=== PATIENT | female | born 1985 | race Hispanic/Latino ===

== ENCOUNTER 2017-07-12 08:18 | Inpatient (IN) | payer MEDICAID ==
[2017-07-12] MEDS ORDERED: BRETHINE IVP PRN (11:23)
[2017-07-12] MEDS ORDERED: BRETHINE SUB-Q PRN (11:23)
[2017-07-12] MEDS ORDERED: MINERAL OIL PO PRN (11:23)
[2017-07-12] MEDS ORDERED: SUBLIMAZE IV PRN (11:23)
[2017-07-12] MEDS ORDERED: ePHEDrine SULFATE IV PRN (11:23)
[2017-07-12] MEDS: LACTATED RINGERS 1,000 ML IV SCH (11:54)
[2017-07-12] MEDS ORDERED: PITOCin/NS 20 UNIT/1000ML DRIP 20 UNITS/1,000 ML BAG IV SCH (12:00)
[2017-07-12] MEDS: PITOCin/NS 30 UNIT/500ML 30 UNITS/500 ML BAG IV SCH ×3 (12:00→14:01)
[2017-07-12] MEDS ORDERED: XYLOCAINE 2% INFILTRATI ONE (12:00)
[2017-07-12] MEDS ORDERED: PITOCin/NS 30 UNIT/500ML 30 UNITS/500 ML BAG IV SCH (12:00)
[2017-07-12 13:47] LABS: Hematocrit 32.5 % (30.3-42.9); Hemoglobin 10.7 gm/dl (10.1-14.3); Mean Corpuscular HGB Conc 33 % (30-34); Mean Corpuscular Hemoglobin 31 pg (28-32); Mean Corpuscular Volume 94 fl (79-97); Platelet Count 280 K/mm3 (140-440); Red Blood Count 3.46 M/mm3 (3.65-5.03); Red Cell Distribution Width 13.6 % (13.2-15.2); White Blood Count 12.4 K/mm3 (4.5-11.0)
[2017-07-12] MEDS: STADOL IV PRN ×3 (14:09→22:34)
[2017-07-13] MEDS: STADOL IV PRN ×3 (01:00→07:09)
[2017-07-13] MEDS: LACTATED RINGERS 1,000 ML IV SCH ×3 (02:53→08:47)
[2017-07-13] MEDS: PITOCin/NS 30 UNIT/500ML 30 UNITS/500 ML BAG IV SCH ×3 (05:30→06:51)
--- NOTE | 2017-07-13 06:29 | History and Physical Report ---
History of Present Illness Date of examination: 07/13/17 Date of admission: 07/12/17 08:18 Chief complaint: I'm here for induction History of present illness: Patient is a 32 year old who presents at 40.4 weeks with EDC 07/11/17 for induction of labor due to small for dates on ultrasound. Patient's course was complicated by partial placenta previa which resolved and kidney stones for which she was treated at approximately 32 weeks gestation. All her labs have been otherwise normal Past History Past Medical History: kidney stones Family/Genetic History: none Social history: single - Obstetrical History Expected Date of Delivery: 07/11/17 Actual Gestation: 40 Week(s) 2 Day(s) : 5 Para: 3 Number of Living Children: 3 Medications and Allergies Allergies Allergy/AdvReac Type Severity Reaction Status Date / Time No Known Allergies Allergy Verified 05/05/17 01:43 Home Medications Medication Instructions Recorded Confirmed Last Taken Type HYDROcodone/APAP 5-325 [[place] 1 each PO Q6HR PRN #30 tablet 05/07/17 07/12/17 01:00 Rx 5/325] Pnv,Calcium 72/Iron/Folic Acid 1 tab PO DAILY 07/12/17 07/12/17 07/11/17 18:00 History [Pnv Plus Multivit Tab] Active Meds: Active Medications Butorphanol Tartrate (Stadol) 2 mg IV Q2H PRN PRN Reason: Pain , Severe (7-10) Last Admin: 07/13/17 05:03 Dose: 2 mg Fentanyl (Sublimaze) 100 mcg IV Q2H PRN PRN Reason: Labor Pain Last Admin: 07/12/17 19:30 Dose: 100 mcg Lactated Ringer's (Lactated Ringers) 1,000 mls @ 125 mls/hr IV DIRECT DEMETRIO Last Admin: 07/13/17 02:53 Dose: 125 mls/hr Oxytocin/Sodium Chloride (Pitocin/Ns 20 Unit/1000ml Drip) 20 units in 1,000 mls @ 125 mls/hr IV DIRECT DEMETRIO Oxytocin/Sodium Chloride (Pitocin/Ns 30 Unit/500ml) 30 units in 500 mls @ 4 mls /hr IV TITR DEMETRIO PRN Reason: Protocol Last Admin: 07/13/17 06:09 Dose: 20 ml/hr, 20 mls/hr Mineral Oil (Mineral Oil) 30 ml PO QHS PRN PRN Reason: Constipation Review of Systems All systems: negative Constitutional: weight gain Genitourinary: contractions Rectal Exam: deferred - Vital Signs Vital signs: Vital Signs Temp Pulse Resp BP 97.7 F 72 18 124/81 07/12/17 09:47 07/12/17 09:47 07/12/17 09:47 07/12/17 09:47 Temp Pulse Resp BP Pulse Ox 97.8 F 56 L 20 114/55 07/12/17 19:16 07/12/17 19:20 07/13/17 05:03 07/12/17 19:20 - Physical Exam Breasts: Positive: deferred Cardiovascular: Regular rate, Normal S1, Normal S2 Lungs: Positive: Clear to auscultation, Normal air movement Abdomen: Positive: normal appearance, soft, normal bowel sounds Genitourinary (Female): Positive: normal external genitalia, normal perenium Vulva: both: normal Vagina: Positive: normal moisture Uterus: Positive: normal size, normal contour - Obstetrical FHR: auscultation normal Cervical Dilatation: 1 Cervical Effacement Percentage: 60 station: -3 Uterine Contraction Pattern: Regular Uterine Contraction Intensity: Moderate Results Result Diagrams: 07/12/17 09:10 Abnormal lab results 07/12/17 Range/Units 09:10 WBC 12.4 H (4.5-11.0) K/mm3 RBC 3.46 L (3.65-5.03) M/mm3 All other labs normal. Assessment and Plan IUP at 40.2 weeks for induction. Pt is GBS negative. Will admit for pitocin induction. AROM when able. Anticipate .
[2017-07-13] MEDS ORDERED: NARCAN 2 MG/2 ML IV PRN (07:33)
[2017-07-13] MEDS ORDERED: ePHEDrine SULFATE IV PRN (07:33)
--- NOTE | 2017-07-13 07:33 | Anesthesia Consultation ---
Anesthesia Consult and Med Hx Date of service: 07/13/17 - Airway Anesthetic Teeth Evaluation: Good ROM Head & Neck: Adequate Mental/Hyoid Distance: Adequate Mallampati Class: Class II Intubation Access Assessment: Probably Good - Pre-Operative Health Status ASA Pre-Surgery Classification: ASA2 Proposed Anesthetic Plan: Epidural, Spinal - Pulmonary Hx Smoking: Yes Hx Asthma: No COPD: No Hx Pneumonia: No - Cardiovascular System Hx Hypertension: No - Central Nervous System Hx Seizures: No Hx Psychiatric Problems: No - Endocrine Hx Renal Disease: No Hx End Stage Renal Disease: No Hx Hypothyroidism: No Hx Hyperthyroidism: No - Hematic Hx Anemia: No Hx Sickle Cell Disease: No - Other Systems Hx Alcohol Use: Yes (socially when not )
[2017-07-13] MEDS ORDERED: ePHEDrine SULFATE ONE (07:48)
[2017-07-13] MEDS ORDERED: fentaNYL-BUPIV 2 MCG/ML-0.125% 200 MCG/100 ML BAG EPIDURAL SCH (08:00)
[2017-07-13] MEDS ORDERED: METHERGINE IM ONE (08:35)
[2017-07-13] MEDS ORDERED: NACL 0.9% 500 ML 500 ML IV ONE ×2 (08:37→12:19)
--- NOTE | 2017-07-13 09:07 | Procedure Note ---
OB Delivery Note - Delivery Date of Delivery: 07/13/17 Surgeon: TONG MERCADO Estimated blood loss: other (600) - Vaginal Delivery presentation: vertex Delivery position: OA Intrapartum events: hemorrhage Delivery induction: oxytocin Delivery augmentation: rupture of membranes Delivery monitor: external FHT, external uterine Route of delivery: Delivery placenta: spontaneous Delivery cord: 3 umbilical vessels Episiotomy: none Delivery laceration: other (cervical) Delivery repair: vicryl Anesthesia: epidural - Infant A at 1 minute: 9 at 5 minutes: 9 Gender: Male (6 pounds 8 ounces)
[2017-07-13] MEDS ORDERED: MOTRIN PO ONE ×2 (10:08→10:13)
[2017-07-13] MEDS ORDERED: TYLENOL PO PRN (11:27)
[2017-07-13] MEDS ORDERED: SODIUM CHLORIDE FLUSH SYRINGE 10 ML IV NR (11:27)
[2017-07-13] MEDS ORDERED: ZOFRAN IV PRN (11:27)
[2017-07-13] MEDS ORDERED: BENADRYL PO PRN (11:27)
[2017-07-13] MEDS ORDERED: DULCOLAX PR PRN (11:27)
[2017-07-13] MEDS ORDERED: TUCKS PAD TP PRN (11:27)
[2017-07-13] MEDS ORDERED: PHENERGAN PO PRN (11:27)
[2017-07-13] MEDS ORDERED: PITOCin/NS 20 UNIT/1000ML DRIP 20 UNITS/1,000 ML BAG IV SCH (11:27)
[2017-07-13] MEDS ORDERED: PHENERGAN PR PRN (11:27)
[2017-07-13] MEDS ORDERED: LANSINOH TP PRN (11:27)
[2017-07-13] MEDS: NORCO 5/325 PO PRN (11:56)
[2017-07-13] MEDS: PRENATAL VITAMIN PO SCH (13:43)
[2017-07-13] MEDS: COLACE PO SCH ×3 (13:43→23:01)
[2017-07-13] MEDS: MOTRIN PO SCH (19:11)
[2017-07-13 21:33] LABS: Hematocrit 26.1 % (30.3-42.9); Hemoglobin 8.6 gm/dl (10.1-14.3)
[2017-07-13] MEDS ORDERED: MILK OF MAGNESIA PO PRN (22:00)
[2017-07-14] MEDS: MOTRIN PO SCH ×5 (05:46→23:57)
[2017-07-14] MEDS ORDERED: BOOSTRIX IM ONE (06:00)
[2017-07-14] MEDS: PRENATAL VITAMIN PO SCH (10:18)
[2017-07-14] MEDS: COLACE PO SCH ×2 (10:18→21:59)
[2017-07-14] MEDS: NORCO 5/325 PO PRN ×2 (13:20→19:59)
--- NOTE | 2017-07-14 14:23 | Discharge Summary ---
Providers - Providers Date of Admission: 07/12/17 08:18 Date of discharge: 07/15/17 Attending physician: TONG MERCADO Primary care physician: TONG MERCADO Hospitalization Reason for admission: induction of labor Delivery: Episiotomy: none Laceration: other (cervical) Other procedures: none complications: transfusion Discharge diagnosis: IUP at term delivered baby: male Hospital course: Patient was stable after delivery and transfusion Condition at discharge: Good Disposition: DC-01 TO HOME OR SELFCARE Plan - Discharge Medications Prescriptions: Ibuprofen [Motrin] 800 mg PO Q8HR PRN #40 tablet PRN Reason: Pain - Provider Discharge Summary Activity: routine, no sex for 6 weeks, no heavy lifting 4 weeks, no strenuous exercise Diet: routine Instructions: routine Additional instructions: [] Smoking cessation referral if applicable(refer to patient education folder for contact #) [] Refer to [facility] Booklet Call your doctor immediately for: * Fever > 100.5 * Heavy vaginal bleeding ( >1 pad per hour) * Severe persistent headache * Shortness of breath * Reddened, hot, painful area to leg or breast * Drainage or odor from incision. * Keep incision clean and dry at all times and follow doctor's instructions regarding bathing/showering - Follow up plan Follow up: TONG MERCADO MD [Primary Care Provider] - 6 Weeks
--- NOTE | 2017-07-14 14:23 | Progress Note ---
Assessment and Plan PPD 1 s/p . Doing well. Plan for discharge on tomorrow as baby has to wait until tonight for repeat bilirubin testing. Subjective - Subjective Date of service: 07/14/17 Interval history: Patient is a 32 year old who presents at 40.4 weeks with EDC 07/11/17 for induction of labor due to small for dates on ultrasound. Patient's course was complicated by partial placenta previa which resolved and kidney stones for which she was treated at approximately 32 weeks gestation. All her labs have been otherwise normal Patient reports: appetite normal, voiding normally, pain well controlled, ambulating normally [place]: doing well Objective - Vital Signs Latest vital signs: Vital Signs Temp Pulse Resp BP 07/14/17 08:20 98.2 F 75 18 111/71 07/14/17 00:00 98.6 F 61 18 101/68 07/13/17 20:00 98.6 F 51 L 16 121/66 07/13/17 16:15 98.5 F 60 18 111/65 Intake and Output 07/13/17 07/14/17 07/14/17 22:59 06:59 14:59 Intake Total 420 500 240 Output Total 1400 200 Balance -980 300 240 Intake: Oral 120 200 240 Intake, Free Water 300 300 Output: Urine 1400 200 Void 1400 200 Other: Total, Intake Amount 120 200 240 Total, Output Amount 600 200 # Voids Void 1 1 # Bowel Movements 1 - Exam Breasts: Present: deferred Cardiovascular: Present: Regular rate, Normal S1, Normal S2 Lungs: Present: Clear to auscultation, Normal air movement Abdomen: Present: normal appearance, soft, normal bowel sounds Uterus: Present: normal, firm, fundal height below umbilicus Extremities: Present: normal Deep Tendon Reflex Grade: Normal +2 - Labs Labs: Abnormal lab results 07/12/17 07/13/17 Range/Units 09:10 21:18 Hgb 8.6 L (10.1-14.3) gm/dl Hct 26.1 L D (30.3-42.9) % Crossmatch See Detail
[2017-07-15] MEDS: MOTRIN PO SCH ×2 (05:23→12:10)
[2017-07-15] MEDS: NORCO 5/325 PO PRN ×2 (08:10→14:55)
[2017-07-15 08:35] VITALS: BP 99/57
[2017-07-15] MEDS: PRENATAL VITAMIN PO SCH (10:10)
[2017-07-15] MEDS: COLACE PO SCH (10:10)
== END 2017-07-15 17:21 | disposition home or self-care (01) | DRG 774 ==
LOC: LD 08:18 → OB 07-13 11:28
PROVIDERS: ADMIT Obstetrics & Gynecology; ATTEND Obstetrics & Gynecology
PROC: 10E0XZZ Delivery of Products of Conception, External Approach (ICD-10-PCS; principal; 2017-07-13)
PROC: 0UQC7ZZ Repair Cervix, Via Natural or Artificial Opening (ICD-10-PCS; 2017-07-13)
PROC: 3E0P3VZ Introduction of Hormone into Female Reproductive, Percutaneous Approach (ICD-10-PCS; 2017-07-13)
PROC: 3E0R3BZ Introduction of Anesthetic Agent into Spinal Canal, Percutaneous Approach (ICD-10-PCS; 2017-07-13)
PROC: 00HU33Z Insertion of Infusion Device into Spinal Canal, Percutaneous Approach (ICD-10-PCS; 2017-07-13)
PROC: 30233N1 Transfusion of Nonautologous Red Blood Cells into Peripheral Vein, Percutaneous Approach (ICD-10-PCS; 2017-07-13)
DX: O71.3 Obstetric laceration of cervix (principal); O72.1 Other immediate postpartum hemorrhage; Z37.0 Single live birth; Z3A.40 40 weeks gestation of pregnancy; Z87.442 Personal history of urinary calculi
CPT/HCPCS: 36415; 36430; 85014; 85018; 85027; 86850; 86900; 86901; 86920; 88307; 90471; 90715; 99211; G0463; J0595; J2210; J2590; J3010; J7040; J7120; P9016

== ENCOUNTER 2017-09-12 16:29 | Emergency (ER) | payer MEDICAID ==
[2017-09-12 17:32] VITALS: BP 127/76
[2017-09-12] MEDS ORDERED: NORCO 5/325 PO ONE (21:17)
--- NOTE | 2017-09-12 21:19 | Emergency Department Report ---
ED ENT HPI - General Chief complaint: Dental/Oral Stated complaint: TOOTHACHE Time Seen by Provider: 09/12/17 21:08 Source: patient Mode of arrival: Ambulatory Limitations: No Limitations - History of Present Illness Initial comments: 32-year-old female past medical history dental cavities presents with complaint of left upper dental pain with small dental abscess for approximately 4 days. Patient denies any difficulty swallowing states it is slightly worse when she chews food. Denies possible blood drainage from mouth. Speaking in full sentences. Denies any fevers or chills. States she took Tylenol at home with minimal relief of her toothache. States she has a follow-up with a dentist in 4 days. States she has had a cavity in this region for some time and she has not yet had it addressed. MD complaint: tooth pain Onset/Timin -: days(s) Location: tooth # 1 - small dental abscess here Severity: moderate Severity scale (0 -10): 6 Quality: aching Consistency: constant Worsens with: eating Context- Dental: history of dental caries, poor dental care Associated Symptoms: gum swelling, toothache - Related Data Previous Rx's Medication Instructions Recorded Last Taken Type HYDROcodone/APAP 5-325 [[place] 1 each PO Q6HR PRN #30 tablet 05/07/17 07/12/17 01 :00 Rx 5/325] Acetaminophen/Codeine [Tylenol 1 tab PO Q6H PRN #15 tab 09/12/17 Unknown Rx /Codeine # 3 tab] Benzocaine [Orajel Liquid 20%] 1 ml MM Q6HR PRN #1 bottle 09/12/17 Unknown Rx Chlorhexidine Mouthwash [Peridex] 15 ml MM BID #1 bottle 09/12/17 Unknown Rx Clindamycin [Clindamycin CAP] 300 mg PO Q6H #40 capsule 09/12/17 Unknown Rx Ibuprofen [Motrin] 600 mg PO Q8H PRN #30 tablet 09/12/17 Unknown Rx Allergies Allergy/AdvReac Type Severity Reaction Status Date / Time No Known Allergies Allergy Verified 08/09/17 08:04 ED Dental HPI - General Chief complaint: Dental/Oral Stated complaint: TOOTHACHE Time Seen by Provider: 09/12/17 21:08 Source: patient Mode of arrival: Ambulatory Limitations: No Limitations - Related Data Previous Rx's Medication Instructions Recorded Last Taken Type HYDROcodone/APAP 5-325 [[place] 1 each PO Q6HR PRN #30 tablet 05/07/17 07/12/17 01 :00 Rx 5/325] Acetaminophen/Codeine [Tylenol 1 tab PO Q6H PRN #15 tab 09/12/17 Unknown Rx /Codeine # 3 tab] Benzocaine [Orajel Liquid 20%] 1 ml MM Q6HR PRN #1 bottle 09/12/17 Unknown Rx Chlorhexidine Mouthwash [Peridex] 15 ml MM BID #1 bottle 09/12/17 Unknown Rx Clindamycin [Clindamycin CAP] 300 mg PO Q6H #40 capsule 09/12/17 Unknown Rx Ibuprofen [Motrin] 600 mg PO Q8H PRN #30 tablet 09/12/17 Unknown Rx Allergies Allergy/AdvReac Type Severity Reaction Status Date / Time No Known Allergies Allergy Verified 08/09/17 08:04 ED Review of Systems ROS: Stated complaint: TOOTHACHE Other details as noted in HPI Constitutional: denies: chills, fever Eyes: denies: eye pain, eye discharge, vision change ENT: dental pain. denies: ear pain, throat pain Respiratory: denies: cough, shortness of breath, wheezing Cardiovascular: denies: chest pain, palpitations Endocrine: no symptoms reported Gastrointestinal: denies: abdominal pain, nausea, diarrhea Genitourinary: denies: urgency, dysuria, discharge Musculoskeletal: denies: back pain, joint swelling, arthralgia Skin: denies: rash, lesions Neurological: denies: headache, weakness, paresthesias Psychiatric: denies: anxiety, depression Hematological/Lymphatic: denies: easy bleeding, easy bruising ED Past Medical Hx - Past Medical History Hx Hypertension: No Hx Congestive Heart Failure: No Hx Diabetes: No Hx Deep Vein Thrombosis: No Hx Renal Disease: No Hx Sickle Cell Disease: No Hx Headaches / Migraines: Yes (migraines) Hx Seizures: No Hx Kidney Stones: Yes (passed) Hx Asthma: No Hx COPD: No Hx HIV: No - Surgical History Past Surgical History?: No - Social History Smoking Status: Current Every Day Smoker Substance Use Type: None - Medications Home Medications: Home Medications Medication Instructions Recorded Confirmed Last Taken Type HYDROcodone/APAP 5-325 [[place] 1 each PO Q6HR PRN #30 tablet 05/07/17 08/09/17 01:00 Rx 5/325] Acetaminophen/Codeine [Tylenol 1 tab PO Q6H PRN #15 tab 09/12/17 Unknown Rx /Codeine # 3 tab] Benzocaine [Orajel Liquid 20%] 1 ml MM Q6HR PRN #1 bottle 09/12/17 Unknown Rx Chlorhexidine Mouthwash [Peridex] 15 ml MM BID #1 bottle 09/12/17 Unknown Rx Clindamycin [Clindamycin CAP] 300 mg PO Q6H #40 capsule 09/12/17 Unknown Rx Ibuprofen [Motrin] 600 mg PO Q8H PRN #30 tablet 09/12/17 Unknown Rx ED Physical Exam - General Limitations: No Limitations General appearance: alert, in no apparent distress - Head Head exam: Present: atraumatic, normocephalic - Eye Eye exam: Present: normal appearance, PERRL, EOMI - ENT ENT exam: Present: mucous membranes moist - Expanded ENT Exam Expanded Teeth exam: Present: dental caries, dental tenderness #, gingival enlargement 1 - Dental Tenderness (dental cavity with small abscess here) - Neck Neck exam: Present: normal inspection, full ROM - Respiratory Respiratory exam: Present: normal lung sounds bilaterally. Absent: respiratory distress - Cardiovascular Cardiovascular Exam: Present: regular rate, normal rhythm. Absent: systolic murmur, diastolic murmur, rubs, gallop - GI/Abdominal GI/Abdominal exam: Present: soft, normal bowel sounds - Extremities Exam Extremities exam: Present: normal inspection - Back Exam Back exam: Present: normal inspection - Neurological Exam Neurological exam: Present: alert, oriented X3 - Psychiatric Psychiatric exam: Present: normal affect, normal mood - Skin Skin exam: Present: warm, dry, intact, normal color. Absent: rash ED Course Vital Signs 09/12/17 17:25 Temperature 99.1 F Pulse Rate 55 L Respiratory 14 Rate Blood Pressure 127/76 Blood Pressure 127/76 [Right] O2 Sat by Pulse 100 Oximetry ED Medical Decision Making - Medical Decision Making A/P: dental cavities, toothache, dental abscess 1- Motrin when necessary, clindamycin ten-day course, Orajel when necessary, Peridex mouthwash daily basis, short course codeine when necessary 2- I provided patient with information for multiple dental clinics to follow up and stressed the importance of dental follow-up as he has multiple cavities that require dental fixation or instrumentation 3- no clinical signs of facial abscess, no Travon's angina, no induration or cellulitis of floor of mouth or tongue 4- patient able to tolerate by mouth before discharge 5- no signs of facial infection. Advised patient that if he does not take antibiotics with follow-up with a dentist as soon as possible that a can result in potentially serious or dangerous infection to develop in jaw or face. Patient states that he understood these instructions. I advised patient to return to the ED for any persistent unrelenting nausea or vomiting fever or chills or headaches. Critical care attestation.: If time is entered above; I have spent that time in minutes in the direct care of this critically ill patient, excluding procedure time. ED Disposition Clinical Impression: Dental abscess, Toothache Disposition: TO HOME OR SELFCARE Is pt being admited?: No Does the pt Need Aspirin: No Condition: Stable Instructions: Dental Caries (ED), Dental Abscess (ED), Toothache (ED) Prescriptions: Acetaminophen/Codeine [Tylenol /Codeine # 3 tab] 1 tab PO Q6H PRN #15 tab PRN Reason: Pain Benzocaine [Orajel Liquid 20%] 1 ml MM Q6HR PRN #1 bottle PRN Reason: Toothache Chlorhexidine Mouthwash [Peridex] 15 ml MM BID #1 bottle Clindamycin [Clindamycin CAP] 300 mg PO Q6H #40 capsule Ibuprofen [Motrin] 600 mg PO Q8H PRN #30 tablet PRN Reason: Pain Referrals: JEREMY NICOLE MD [Primary Care Provider] - 3-5 Days [facility] [Outside] - 3-5 Days [facility] [Outside] - 3-5 Days Time of Disposition: 21:18
== END 2017-09-12 21:43 | disposition home or self-care (01) ==
LOC: ED 16:29
DX: K04.7 Periapical abscess without sinus (principal); F17.200 Nicotine dependence, unspecified, uncomplicated
CPT/HCPCS: 99282

== ENCOUNTER 2017-10-06 08:36 | Day surgery (SDC) | payer MEDICAID ==
[2017-10-06] MEDS ORDERED: ANCEF/STERILE WATER 2 GM/20 ML 2 GM/20 ML SYRINGE IV NR (09:00)
--- NOTE | 2017-10-06 09:04 | Short Stay Summary ---
Short Stay Documentation Date of service: 10/06/17 - History Principal diagnosis: Undesired fertility H&P: obtained from office Past Medical History: No medical history Past Surgical History: No surgical history Social history: - Allergies and Medications Current Medications: Allergies No Known Allergies Allergy (Verified 10/04/17 15:38) Home Medications Medication Instructions Recorded Confirmed Last Taken Type oxyCODONE [Roxicodone] 5 mg PO Q6HR PRN 10/04/17 10/04/17 Unknown History Active Medications Cefazolin Sodium (Ancef/Sterile Water 2 Gm/20 Ml) 2 gm in 20 mls @ 80 mls/hr IV PREOP NR PRN Reason: Protocol - Physical exam General appearance: no acute distress Integumentary: no rash, no growths, no abnormal pigmentation Lungs: Clear to auscultation, Normal air movement Breasts: deferred Heart: Regular rate, Normal S1, Normal S2 Gastrointestinal: normal, normoactive bowel sounds Female Genitourinary: normal Rectal Exam: deferred Extremities: no ischemia, No edema - Brief post op/procedure progress note Date of procedure: 10/06/17 Pre-op diagnosis: Undesired fertility Post-op diagnosis: same Procedure: Laparoscopic Tubal Fulguration Anesthesia: GETA Findings: Normal uterus tubes and ovaries Surgeon: TONG MERCADO Estimated blood loss: none Pathology: list (right and left fallopian tubes) Specimen disposition: to lab Condition: stable - Hospital course Hospital course: Unremarkable - Disposition Condition at discharge: Good Disposition: DC-01 TO HOME OR SELFCARE Short Stay Discharge Plan Activity: no restrictions Weight Bearing Status: Weight Bear as Tolerated Diet: regular Follow up with: TONG MERCADO MD [Staff Physician] - 14 Days Prescriptions: HYDROcodone/ACETAMINOPHEN [[place] 5-325 Tablet] 1 each PO Q6H #20 tablet Ibuprofen [Motrin] 800 mg PO Q8HR PRN #40 tablet PRN Reason: Pain
[2017-10-06] MEDS ORDERED: DIPRIVAN 10 MG/ML IV ONE (10:00)
[2017-10-06] MEDS ORDERED: XYLOCAINE MPF 2% ONE (10:00)
[2017-10-06] MEDS ORDERED: ZEMURON IV ONE (10:03)
[2017-10-06] MEDS ORDERED: DECADRON ONE (10:03)
[2017-10-06] MEDS ORDERED: ZOFRAN ONE (10:04)
[2017-10-06] MEDS ORDERED: NACL 0.9% IR ONE (10:30)
[2017-10-06] MEDS ORDERED: NACL 0.9% 1000 ML 1,000 ML ONE (10:30)
[2017-10-06] MEDS ORDERED: MARCAINE 0.25% INFILTRATI ONE (10:30)
[2017-10-06] MEDS ORDERED: DILAUDID ONE (10:43)
[2017-10-06] MEDS ORDERED: NACL 0.9% 1000 ML 1,000 ML IV SCH (11:00)
[2017-10-06] MEDS ORDERED: ROBINUL ONE (11:23)
[2017-10-06] MEDS ORDERED: NEOSTIGMINE ONE (11:23)
[2017-10-06] MEDS ORDERED: TORADOL ONE ×2 (11:39→11:59)
[2017-10-06] MEDS ORDERED: DILAUDID IV PRN (11:59)
[2017-10-06] MEDS ORDERED: ZOFRAN IV PRN (11:59)
[2017-10-06] MEDS ORDERED: SUBLIMAZE ONE (11:59)
[2017-10-06] MEDS ORDERED: SUBLIMAZE IV PRN (11:59)
--- NOTE | 2017-10-06 12:01 | Operative Report ---
Operative Report Operative Report: Preoperative diagnosis: Undesired fertility Postoperative diagnosis: Same Procedure: Bilateral laparoscopic salpingectomy Surgeon: Amarilys Dutta Anesthesia: General EBL: Minimal IV fluids: [900] Urine output: 200 Findings:[Normal uterus tubes and ovaries] Specimens: Portion of right and left fallopian tube Complications: None The patient was properly identified as herself. She was then taken to the OR with IV running and in place. She was given general anesthesia without difficulty. She was placed in a dorsal lithotomy position. She was then prepped and draped in normal sterile fashion. Attention was turned to the patient's vagina. Her bladder was drained of clear urine with a red rubber catheter. The speculum was then placed the patient's vagina. The cervix was visualized and grasped with tenaculum. The acorn cannula was then inserted. The surgeon's gloves were changed and attention turned to the patient's abdomen. A small incision was made in the patient's umbilicus incision a 5 mm trocar was placed. The laparoscope confirmed intra-abdominal placement. The abdomen was insufflated with CO2 gas to approximately 25 mmHg. Both fallopian tubes were identified. With direct visualization a second trocar was placed through an incision in the left lower quadrant. Both tubes were found and followed out to the fimbriated ends. Each tube was cauterized at the portion nearest the cornua, then cauterized across the broad ligament until the tube was completely detached. There was excellent hemostasis at the end of this portion of the procedure. Each tube was handed off for pathology. At this point the abdomen was deflated. All instruments were then removed from the abdomen. The incisions were then closed with 4-0 Monocryl. The incisions were also injected with quarter percent Marcaine. The patient tolerated the procedure well she was then awakened and taken recovery in stable condition. Sponge needle and instrument counts were correct 2.
[2017-10-06] MEDS ORDERED: TORADOL IV ONE (12:02)
[2017-10-06] MEDS ORDERED: NORCO 5/325 PO SCH (13:00)
[2017-10-06] MEDS ORDERED: MOTRIN PO SCH (13:00)
--- NOTE | 2017-10-06 13:23 | Anesthesia Day of Surgery ---
Anesthesia Day of Surgery - Day of Surgery Patient Examined: Yes Patient H&P Reviewed: Yes Patient is NPO: Yes
--- NOTE | 2017-10-06 13:25 | Post Anesthesia Evaluation ---
- Post Anesthesia Evaluation Patient Participated: Yes Airway Patent: Yes Stable Respiratory Function: Yes Nausea/Vomiting: No Temp > 96.8F: Yes Pain Manageable: Yes Adequeate Hydration: Yes Anesthesia Complications: No
--- NOTE | 2017-10-06 13:25 | Anesthesia Consultation ---
Anesthesia Consult and Med Hx Date of service: 10/06/17 - Airway Anesthetic Teeth Evaluation: Poor ROM Head & Neck: Adequate Mental/Hyoid Distance: Adequate Mallampati Class: Class II Intubation Access Assessment: Probably Good - Pulmonary Exam CTA: Yes - Cardiac Exam Cardiac Exam: RRR - Pre-Operative Health Status ASA Pre-Surgery Classification: ASA2 Proposed Anesthetic Plan: General (10 wks pp/ on abs for tooth infection) - Pulmonary Hx Smoking: Yes - Central Nervous System Hx Psychiatric Problems: No - Other Systems Hx Alcohol Use: Yes (socially when not ) Hx Cancer: No
--- NOTE | 2017-10-06 13:27 | Anesthesia Consultation ---
Anesthesia Consult and Med Hx Date of service: 09/29/17 - Airway Anesthetic Teeth Evaluation: Poor ROM Head & Neck: Adequate Mental/Hyoid Distance: Adequate Mallampati Class: Class II Intubation Access Assessment: Good - Pulmonary Exam CTA: Yes - Cardiac Exam Cardiac Exam: RRR - Pre-Operative Health Status ASA Pre-Surgery Classification: ASA2 Proposed Anesthetic Plan: General (10 wks pp) - Pulmonary Hx Smoking: Yes - Central Nervous System Hx Psychiatric Problems: No - Other Systems Hx Alcohol Use: Yes (socially when not ) Hx Cancer: No
[2017-10-06 19:33] VITALS: BP 108/64
== END 2017-10-06 13:30 | disposition home or self-care (01) ==
LOC: OR 08:36
PROVIDERS: ATTEND Obstetrics & Gynecology
DX: Z30.2 Encounter for sterilization (principal); Z79.899 Other long term (current) drug therapy; Z87.891 Personal history of nicotine dependence; Z98.890 Other specified postprocedural states
CPT/HCPCS: 58670; 81025; 88302; J0690; J1100; J1170; J1885; J2405; J2704; J2710; J3010; J7030